=== PATIENT | female | born 1945 | race Caucasian/White ===

== ENCOUNTER 2024-01-17 15:54 | Outpatient (RCR) | payer MEDICARE ==
[~2024-01-17 15:54] MED LIST: ASPIRIN325 MG PO; GLIMEPIRIDE4 MG PO; LORTAB 7.5-5001 EACH PO; PLAVIX300 MG; SERTRALINE; TRAMADOL HCL-A1 EAC1 PO; TRILIPIX135 MG PO; Z.0.AMLODIPINE BESY1 PO; Z.0.ASPIRIN325 MG PO; Z.0.CARVEDILOL12.5 M PO; Z.0.CLOPIDOGREL75 MG; Z.0.GLUCOPHAGE1000 M PO; Z.0.HYDROCHLOROTHIA2 PO; Z.0.ISOSORBIDE MONO6; Z.0.JANUVIA100 MG PO; Z.0.LIPITOR40 MG PO; Z.0.LISINOPRIL20 MG PO; Z.0.PANTOPRAZOLE SO4 PO; Z.0.SYNTHROID100 MCG PO; Z.0.TRICOR145 MG PO; Z.0.WELLBUTRIN XL300 PO
== END 2024-02-03 ==
LOC: PT 15:54
PROVIDERS: ATTEND Family Medicine
DX: G57.02 Lesion of sciatic nerve, left lower limb (principal); M62.81 Muscle weakness (generalized); R26.81 Unsteadiness on feet

== ENCOUNTER 2024-02-05 14:46 | Outpatient (RCR) | payer MEDICARE | END 2024-03-05 | LOC: PT 14:46 | PROVIDERS: ATTEND Family Medicine | DX: G57.02 Lesion of sciatic nerve, left lower limb (principal); M62.81 Muscle weakness (generalized); R26.81 Unsteadiness on feet ==